=== PATIENT | female | born 1995 | race Caucasian/White ===

== ENCOUNTER 2018-07-15 23:45 | Emergency (ER) | payer BC ==
[2018-07-16] MEDS ORDERED: Lidocaine 2% PF 5 ML VIAL ONE (06:46)
== END 2018-07-16 01:20 | disposition home or self-care (01) ==
LOC: BURERS 23:45
DX: F41.0 Panic disorder [episodic paroxysmal anxiety] (principal)
CPT/HCPCS: 99284; J2001